=== PATIENT | male | born 2000 | race Caucasian/White ===

== ENCOUNTER → 2025-01-18 | Outpatient (CLI) | payer BC ==
--- NOTE | 2025-01-18 21:53 | EEG ---
ELECTROENCEPHALOGRAM REPORT PREAMBLE: This is a 24-year-old male with a syncopal episode. CURRENT MEDICATIONS: None. EEG FINDINGS: This is a 21-channel digital EEG recorded with video component, utilizing 10/20 international system with referential and bipolar montage. Background consists of well- developed, well-regulated, moderate voltage activity in 9 to10 Hz alpha. Background is posterior dominant and reactive to eye opening and closing. Photic driving response was seen with some flash frequencies. Drowsiness was seen with presence of bilaterally symmetric theta frequency rhythm. Some brief stage 2 sleep was seen with the presence of sleep spindles, and no focal or generalized epileptiform activity was seen. EKG channel showed no obvious arrhythmia. IMPRESSION: This is a normal EEG during wakefulness, drowsiness, and brief stage 2 sleep. No focal, lateralized, or epileptiform activity was seen. RENÉ / MILLY: [id number] /
== END ==
LOC: NEUROMAIN 07:57
PROVIDERS: ATTEND Family Medicine
DX: R55 Syncope and collapse (principal)
CPT/HCPCS: 95816